=== PATIENT | female | born 1950 | race Caucasian/White ===

== ENCOUNTER → 2016-05-20 | Outpatient (CLI) | payer OTHER | LOC: KOH-I 12:43 | DX: M54.6 Pain in thoracic spine (principal); M47.814 Spondylosis without myelopathy or radiculopathy, thoracic region | CPT/HCPCS: 72070 ==

== ENCOUNTER → 2016-08-07 | Outpatient (CLI) | payer OTHER | LOC: KOH-I 13:53 | DX: M25.551 Pain in right hip (principal); M54.5 Low back pain; M48.06 Spinal stenosis, lumbar region | CPT/HCPCS: 72110; 73502 ==

== ENCOUNTER 2021-02-06 17:15 | Inpatient (IN) | payer MEDICARE ==
[~2021-02-06] VITALS: Ht 152.4 cm; Wt 64.9 kg
[~2021-02-06 17:15] MED LIST: AMOXICILLIN500 M1 PO; BENTYL 20MG TAB20 MG PO; CARAFATE1 GM/10 ML PO; HYDROCODON-ACE1 EAC4 PO; NEXIUM20 MG PO; PROTONIX40 MG PO; ZOFRAN ODT 4 MG4 MG PO
[2021-02-06 18:43] LABS: HEMOGLOBIN 12.9 gm/dl (12.3-15.3); RED BLOOD COUNT 4.18 M/UL (4.00-5.10); WHITE BLOOD COUNT 11.8 K/UL (4.5-11.0)
[2021-02-06 19:04] LABS: BUN/CREATININE RATIO 16 (0-10)
[2021-02-07] MEDS ORDERED: NEXIUM20 MG PO (01:24)
[2021-02-07] MEDS ORDERED: SYNTHROID25 MCG PO (01:25)
[2021-02-07] MEDS ORDERED: FLONASE 0.05% N16 GM (01:27)
[2021-02-07] MEDS ORDERED: PROAIR DIGIHAL90 MCG INH (01:27)
[2021-02-07] MEDS ORDERED: ATIVAN1 MG PO (07:32)
[2021-02-07] MEDS ORDERED: SINGULAIR10 MG PO (07:32)
[2021-02-07] MEDS ORDERED: ZYRTEC10 MG PO (07:33)
[2021-02-07 08:32] LABS: HEMOGLOBIN 11.7 gm/dl (12.3-15.3); RED BLOOD COUNT 3.82 M/UL (4.00-5.10)
[2021-02-07 08:33] LABS: WHITE BLOOD COUNT 15.3 K/UL (4.5-11.0)
[2021-02-07 08:53] LABS: BUN/CREATININE RATIO 15 (0-10)
[2021-02-07] MEDS ORDERED: IBU400 MG PO (10:18)
[2021-02-07] MEDS ORDERED: ESTRADIOL 0.01% TOP (10:22)
[2021-02-08 06:52] LABS: HEMOGLOBIN 10.5 gm/dl (12.3-15.3)
[2021-02-08 06:54] LABS: RED BLOOD COUNT 3.42 M/UL (4.00-5.10); WHITE BLOOD COUNT 23.4 K/UL (4.5-11.0)
[2021-02-08 07:03] LABS: BUN/CREATININE RATIO 14 (0-10)
[2021-02-09 05:06] LABS: HEMOGLOBIN 9.8 gm/dl (12.3-15.3); RED BLOOD COUNT 3.19 M/UL (4.00-5.10); WHITE BLOOD COUNT 18.1 K/UL (4.5-11.0)
[2021-02-09 05:28] LABS: BUN/CREATININE RATIO 10 (0-10)
[2021-02-09] MEDS ORDERED: ZOFRAN 4 MG TAB4 MG PO (10:16)
[2021-02-09] MEDS ORDERED: HYDROCODON-ACE1 EAC4 PO (10:16)
== END 2021-02-09 15:35 | disposition home or self-care (01) | DRG 440 ==
LOC: ER1 17:15 → M/S 21:48 → CDU 21:48 → M/S 02-07 00:48
PROVIDERS: Internal Medicine; Physician Assistant; ADMIT Internal Medicine
DX: K85.90 Acute pancreatitis without necrosis or infection, unspecified (principal); E03.9 Hypothyroidism, unspecified; Z20.822 Contact with and (suspected) exposure to COVID-19; F41.9 Anxiety disorder, unspecified; K44.9 Diaphragmatic hernia without obstruction or gangrene; K59.00 Constipation, unspecified; K21.9 Gastro-esophageal reflux disease without esophagitis; Z90.49 Acquired absence of other specified parts of digestive tract; Z80.9 Family history of malignant neoplasm, unspecified
CPT/HCPCS: 36415; 71045; 76705; 80048; 80053; 80061; 81001; 82550; 82553; 83690; 83735; 83874; 84100; 84132; 84484; 85025; 93005; 96374; 96375; 99285; C9113; G0378; J1650; J2270; J2405; J2765; J7030; Q9967; U0002

== ENCOUNTER → 2021-09-24 | Outpatient (CLI) | payer MEDICARE ==
[~2021-09-24] MED LIST changes: +ATIVAN1 MG PO; +ESTRADIOL 0.01% TOP; +FLONASE 0.05% N16 GM; +IBU400 MG PO; +PROAIR DIGIHAL90 MCG INH; +SINGULAIR10 MG PO; +SYNTHROID25 MCG PO; +ZOFRAN 4 MG TAB4 MG PO; +ZYRTEC10 MG PO
== END ==
LOC: CT 12:37
DX: K85.10 Biliary acute pancreatitis without necrosis or infection (principal); R10.9 Unspecified abdominal pain
CPT/HCPCS: Q9967